=== PATIENT | male | born 1995 | race Caucasian/White ===

== ENCOUNTER 2017-11-14 01:31 | Emergency (ER) | payer OTHER ==
[~2017-11-14] VITALS: Ht 180.3 cm; Wt 90.9 kg
[2017-11-14 01:33] VITALS: TEMP 97.8
[2017-11-14 03:27] VITALS: BP 116/71; PULSE 62
== END 2017-11-14 03:30 | disposition home or self-care (01) ==
LOC: COL.ER 01:31
DX: F10.129 Alcohol abuse with intoxication, unspecified (principal)
CPT/HCPCS: J2405